=== PATIENT | female | born 1950 | race Caucasian/White ===

== ENCOUNTER → 2016-09-11 | Outpatient (CLI) | payer BC ==
[~2016-09-11] MED LIST: Calcium PO; LETR2TAB PO; LEVO88TA PO; MULT-506 PO
== END | disposition home or self-care (01) ==
LOC: C.PAPS 09:17
PROVIDERS: ATTEND Obstetrics & Gynecology
DX: Z01.419 Encounter for gynecological examination (general) (routine) without abnormal findings (principal)

== ENCOUNTER → 2016-10-30 | Outpatient (CLI) | payer BC | END | disposition home or self-care (01) | LOC: C.LAB1850 09:47 | PROVIDERS: ATTEND Obstetrics & Gynecology | DX: E03.9 Hypothyroidism, unspecified (principal) ==

== ENCOUNTER → 2016-12-07 | Outpatient (CLI) | payer BC ==
--- NOTE | 2016-12-07 13:35 | MAMMOGRAPHY REPORT ---
BILATERAL DIGITAL DIAGNOSTIC MAMMOGRAM TOMOSYNTHESIS WITH CAD: 12/07/2016 CLINICAL HISTORY: History of left breast cancer status post lumpectomy July 2013. The patient has n o current complaints. TECHNIQUE: Breast tomosynthesis in addition to standard 2D mammography was performed. Current study was also evaluated with a Computer Aided Detection (CAD) system. Bilateral CC and MLO 2-D and tomosy nthesis images and spot magnification left CC and ML views were obtained. COMPARISON: Comparison is made to exams dated: 12/07/2016 breast MRI, 11/22/2015 mammogram, 11/22/2015 [facility], 06/01/2015 ultrasound, 06/01/2015 mammogram, and 04/22/2014 mammogram - [facility]. BREAST COMPOSITION: The tissue of both breasts is extremely dense, which lowers the sensitivity of m ammography. FINDINGS: There are stable postsurgical changes in the left upper outer quadrant from prior lumpectom y. Spot magnification views of the lumpectomy bed demonstrate no suspicious masses or clusters of mi crocalcifications. The remainder of both breasts are stable compared to prior exams, without suspici ous masses, calcifications, or areas of architectural distortion noted. Scattered bilateral benign-a ppearing calcifications are stable. IMPRESSION: ACR BI-RADS CATEGORY 2: BENIGN There is no mammographic evidence of malignancy in either breast. A 1 year screening mammogram is rec ommended. The patient has been verbally notified of the results. Approximately 10% of breast cancers are not detected with mammography. A negative mammographic report should not delay biopsy if a clinically suggestive mass is present. Hue Romero M.D. ah/:12/07/2016 11:36:04 Circular Shear Operator: Isela YU)(M), [facility] letter sent: Normal 1/2 BI-RADS Code: ACR BI-RADS Category 2: Benign
== END | disposition home or self-care (01) ==
LOC: C.MAMM 11:12
PROVIDERS: ATTEND Nurse Practitioner Family
DX: Z85.3 Personal history of malignant neoplasm of breast (principal)

== ENCOUNTER → 2016-12-07 | Outpatient (CLI) | payer BC ==
[~2016-12-07] MED LIST changes: +GADAVIST IV PRN
--- NOTE | 2016-12-10 13:48 | MAMMOGRAPHY REPORT ---
BREAST MRI OF BOTH BREASTS : 12/07/2016 CLINICAL HISTORY: History of left breast cancer status post lumpectomy. The patient has no current c omplaints. COMPARISON: Comparison is made to exams dated: 11/22/2015 mammogram, 11/22/2015 breast MRI, 06/01/2015 ma mmogram, 10/21/2014 mammogram, and 12/07/2016 mammogram - [facility]. Technique: The patient was placed prone in a dedicated breast imaging coil. Precontrast axial T1-sita ghted, axial T2-weighted fat saturation, and axial T1-weighted fat saturation images were obtained. After the administration of 5.5 mL of Gadavist IV contrast, sequential T1-weighted fat saturation catia ges were obtained. Subtraction images were obtained of the dynamic contrast enhanced sequences, and 3-D reformations were performed. The [employer] software was used for kinetic analysis. Findings: There is minimal background parenchymal enhancement involving bilateral breasts. There are stable po st surgical changes in the left upper outer quadrant from prior lumpectomy. There are no suspicious enhancing masses or areas of abnormal non-mass enhancement within either breast. There has been no s ignificant interval change compared to the prior breast MRI. There is no evidence of axillary adenopathy. The chest wall structures are negative. Visualized ext ramammary soft tissues are unremarkable. IMPRESSION: ACR BI-RADS CATEGORY 2: BENIGN No MRI evidence of malignancy in either breast. Recommend routine bilateral screening mammograms and screening bilateral breast MRI in one year. Hue Romero M.D. ah/:12/08/2016 15:10:28 Group Sales Coordinator: vulnerability assessment analyst, [facility] letter sent: Normal 1/2 BI-RADS Code: ACR BI-RADS Category 2: Benign
== END | disposition home or self-care (01) ==
LOC: C.MRI 08:30
PROVIDERS: ATTEND Nurse Practitioner Family
DX: C50.412 Malignant neoplasm of upper-outer quadrant of left female breast (principal)

== ENCOUNTER 2022-11-17 20:02 | Inpatient (IN) ==
--- NOTE | 2022-11-17 20:33 | Emergency Department Note ---
History of Present Illness General Chief complaint: Illness Stated complaint: LOSS TRACK OF TIME FOR 10 MINS,BAD COUGH Time Seen by Provider: 11/17/22 20:18 Source: patient, RN notes reviewed and old records reviewed Mode of arrival: ambulatory Limitations: no limitations History of Present Illness This patient comes in after having a coughing spell and then became confused/amnestic. She has been sick with a cough for 3 to 4 days with slight clear mucus. She had a coughing fit this evening and then she said she could not remember about a 15-minute. She was confused initially but now is resolved. She has had neck pain for the last 1 to 2 months and she sedated Lyme testing yesterday which showed IgG G+ and IgM negative she has had previous Lyme. She has no headache. No difficult speaking or swallowing or change in vision no focal numbness or weakness. No joint aches. No abdominal pain slight runny nose she feels fine at present she did a negative COVID test at home Home Medications Medication Instructions Recorded Confirmed Type calcium carbonate 500 mg calcium 500 mg PO QAM 12/03/18 11/17/22 History (1,250 mg) chewable tablet (Calcium 500) letrozole 2.5 mg tablet 2.5 mg PO QAM 12/03/18 11/17/22 History multivitamin 1 tab PO QAM 12/03/18 11/17/22 History levothyroxine 88 mcg tablet 88 mcg PO QAM 11/17/22 11/17/22 History (Synthroid) Allergies Allergy/AdvReac Type Severity Reaction Status Date / Time cephalexin [From Keflex] Allergy Mild Rash Verified 03/19/22 13:36 Cephalosporins Allergy Mild RASH Verified 03/19/22 13:36 doxycycline [From Vibramycin] Allergy Mild Rash Verified 03/19/22 13:36 tetracycline Allergy Mild RASH Verified 03/19/22 13:36 Past Med/Surg History Medical History Colon cancer screening Hx of breast cancer LEFT (SURGERY AND RADIATION) Hyperlipidemia PT DENIES Hypothyroidism Menopause Osteopenia Vitamin D deficiency disease Surgical History H/O lumpectomy LEFT History of cataract surgery RT/LEFT History of colonoscopy History of tooth extraction Family History Father TIA (transient ischemic attack) Denies family history of Ovarian cancer Prostate cancer Myocardial infarction Breast cancer Colorectal cancer Social History Smoking Status: Never smoker Second Hand Exposure: Yes ( A CHILD); Do You Dip or Chew Tobacco: No; Hx Alcohol Use: Yes Alcohol type: beer and wine Alcohol type Comment: with dinner Alcohol Intake Frequency Comment: 1 glass Hx Substance Use: No Preferred Language: Slovenian Communication Ability: Effective Visual Impairment: No Limitations Hearing Ability: Normal Census Taker Required: No Beliefs That Will Affect Care: None marital status: Current Living Situation: Spouse current occupational status: employed current occupation: [employer] Feels Safe at Home: Yes Childhood Exposure to Second-Hand Smoke: Yes caffeine: Yes Dental Care, Regularly: Yes Physical Activity Frequency: 5-6 Times per Week Seatbelt Use: always Sunscreen Use: Yes Assistive Devices: Glasses Review of Systems A total of 10 systems reviewed and were otherwise negative Physical Exam Vital Signs Vital Signs - 24 hr 11/17/22 20:04 11/17/22 20:21 11/17/22 20:41 Temperature 36.8 C Temperature Source Temporal Artery Scan Pulse Rate 69 Pulse Rate [Apical] 71 Pulse Rhythm Regular Pulse Rhythm [Apical] Regular Pulse Strength Normal Respiratory Rate 20 16 Respiratory Effort / Characteristics Non-Labored Spontaneous Non-Labored Respiratory Depth Normal Normal Blood Pressure 186/90 H Blood Pressure [Right Arm] 178/96 H Blood Pressure Mean 122 Blood Pressure Mean [Right Arm] 123 Pulse Oximetry 98 99 97 Oxygen Delivery Method Room Air Room Air Room Air Sepsis Recent Fever Within 48 Hours No Sepsis New/Unexplained Change in Mental Status N/A Sepsis Action Taken by Nursing No Action Required 11/17/22 21:05 11/17/22 22:19 Temperature Temperature Source Pulse Rate 64 Pulse Rate [Apical] 72 Pulse Rhythm Pulse Rhythm [Apical] Pulse Strength Respiratory Rate 16 Respiratory Effort / Characteristics Respiratory Depth Blood Pressure Blood Pressure [Right Arm] 149/95 H Blood Pressure Mean Blood Pressure Mean [Right Arm] 113 Pulse Oximetry 98 Oxygen Delivery Method Sepsis Recent Fever Within 48 Hours Sepsis New/Unexplained Change in Mental Status Sepsis Action Taken by Nursing General: Well developed well nourished ajm-niu-ghqlfxjee middle-age female who appears in no acute distress, breathing comfortably on room air. Normal speech HEENT: Normal cephalic atraumatic. Pupils are equal round and reactive to light. Extraocular movements are intact. Oropharynx is pink with moist mucous membranes. No swelling of the mouth lips or tongue. Neck: Supple with a midline trachea. No meningeal signs or stiffness, no JVD or bruits. No Stridor. Chest: Clear to auscultation bilaterally. No wheezes or rhonchi. No increased work of breathing. Heart: Regular rate and rhythm without murmurs or gallops. Abdomen: Soft nontender, nondistended without rebound guarding or rigidity. Extremities: No cyanosis clubbing or edema. No calf tenderness or assymetry Spine/Back. Non tender to palpation. No CVA tenderness Skin: Good turgor without rashes. Neurologic exam: Cranial nerves two through 12 are intact. Motor and sensation are intact and symmetrical throughout. No tremor Course Administered Medications Menthol (Cough Drop (Sugar Free) Cuauhtemoc 24 Cuauhtemoc/1 Box) 1 cuauhtemoc BUCCAL Q1H PRN PRN Reason: Sore Throat Stop: 12/18/22 01:51 Last Admin: 11/18/22 02:15 Dose: 1 cuauhtemoc Documented By: RMB Discontinued Medications Doxycycline Hyclate 100 mg/ (Dextrose) 110 mls @ 50 mls/hr IV NOW STA Stop: 11/18/22 02:27 Last Admin: 11/18/22 00:37 Dose: 50 mls/hr Documented By: RENÉE Medical Decision Making Differential Diagnosis Central neurologic process, infection, TIA, transient global amnesia, Lyme disease, electrolyte or metabolic abnormality, cardiac disease, rib Medical Records Attestation: I reviewed the patient's medical records. Home Medications Current Medication List: was personally reviewed by me Laboratory Data Attestation: I reviewed the patient's lab results. 11/17/22 20:24 11/17/22 20:24 Lab Results 11/17/22 11/17/22 11/17/22 Range/Units 20:24 20:24 20:50 WBC 7.31 (4.8-10.8) K/ul RBC 4.50 (4.20-5.40) M/uL Hgb 14.1 (12.0-16.0) g/dl Hct 41.2 (37.0-47.0) % MCV 91.6 (80.0-100.0) fL MCH 31.3 (25.0-34.0) pg MCHC 34.2 (32.0-36.0) g/dL RDW Std Deviation 42.7 (36.4-46.3) fL RDW Coeff of Jose J 12.8 (11.5-14.5) % Plt Count 257 (130-400) K/uL MPV 10.7 (9.4-12.4) fL Immature Gran % (Auto) 0.4 % Neut % (Auto) 56.7 % Lymph % (Auto) 28.6 % [place] % (Auto) 11.9 % Eos % (Auto) 1.4 % Baso % (Auto) 1.0 % Neut # (Auto) 4.15 (1.40-6.50) K/uL Lymph # (Auto) 2.09 (1.2-3.4) K/uL [place] # (Auto) 0.87 H (0.11-0.59) K/uL Eos # (Auto) 0.10 (0-0.50) K/uL Baso # (Auto) 0.07 (0-0.2) K/uL Immature Gran # (Auto) 0.03 (0.01-0.20) K/uL Sodium 135 L (136-145) mmol/L Potassium 3.5 (3.5-5.1) mmol/L Chloride 99 (98-107) mmol/L Carbon Dioxide 29 (21-32) mmol/L Anion Gap 7 (3-11) BUN 16 (6-23) mg/dl Creatinine 0.74 (0.6-1.2) mg/dl Est Cr Clr Drug Dosing 64.4 ml/min Est GFR ( Amer) 95.8 ml/min Est GFR (Non-Af Amer) 82.7 ml/min BUN/Creatinine Ratio 21.6 H (10-20) Glucose 106 H (70-99(Fasting)) mg/dl Calcium 10.6 H (8.6-10.3) mg/dl Total Bilirubin 0.3 (0.2-1.0) mg/dl AST 21 (13-39) U/L ALT 16 (7-52) U/L Alkaline Phosphatase 91 (34-104) U/L Troponin I High Sens 149.6 H* (0-14) pg/ml Total Protein 8.1 (6.0-8.3) gm/dl Albumin 4.7 (3.4-5.0) gm/dl Globulin 3.4 (2.5-4.0) gm/dl Albumin/Globulin Ratio 1.4 (0.9-2) Lipase 46 (11-82) U/L Adenovirus (PCR) Not Detected (NotDetected) B. pertussis DNA (PCR) Not Detected (NotDetected) B.parapertussis DNA PCR Not Detected (NotDetected) C. pneumoniae DNA (PCR) Not Detected (NotDetected) Coronavirus OC43 (PCR) Not Detected (NotDetected) Coronavirus HKU1 (PCR) Not Detected (NotDetected) Coronavirus 229E (PCR) Not Detected (NotDetected) SARS-CoV-2 (PCR) Not Detected (NotDetected) Coronavirus NL63 (PCR) Not Detected (NotDetected) Human Metapneumovir PCR Not Detected (NotDetected) Influenza Type A (PCR) Not Detected (NotDetected) Influenza Type B (PCR) Not Detected (NotDetected) M. pneumoniae (PCR) Not Detected (NotDetected) Parainfluenza 1 (PCR) Not Detected (NotDetected) Parainfluenza 2 (PCR) Not Detected (NotDetected) Parainfluenza 3 (PCR) Not Detected (NotDetected) Parainfluenza 4 (PCR) Not Detected (NotDetected) RSV (PCR) Not Detected (NotDetected) Entero/Rhino (PCR) DETECTED A* (NotDetected) 11/17/22 Range/Units 22:32 WBC (4.8-10.8) K/ul RBC (4.20-5.40) M/uL Hgb (12.0-16.0) g/dl Hct (37.0-47.0) % MCV (80.0-100.0) fL MCH (25.0-34.0) pg MCHC (32.0-36.0) g/dL RDW Std Deviation (36.4-46.3) fL RDW Coeff of Jose J (11.5-14.5) % Plt Count (130-400) K/uL MPV (9.4-12.4) fL Immature Gran % (Auto) % Neut % (Auto) % Lymph % (Auto) % [place] % (Auto) % Eos % (Auto) % Baso % (Auto) % Neut # (Auto) (1.40-6.50) K/uL Lymph # (Auto) (1.2-3.4) K/uL [place] # (Auto) (0.11-0.59) K/uL Eos # (Auto) (0-0.50) K/uL Baso # (Auto) (0-0.2) K/uL Immature Gran # (Auto) (0.01-0.20) K/uL Sodium (136-145) mmol/L Potassium (3.5-5.1) mmol/L Chloride (98-107) mmol/L Carbon Dioxide (21-32) mmol/L Anion Gap (3-11) BUN (6-23) mg/dl Creatinine (0.6-1.2) mg/dl Est Cr Clr Drug Dosing ml/min Est GFR ( Amer) ml/min Est GFR (Non-Af Amer) ml/min BUN/Creatinine Ratio (10-20) Glucose (70-99(Fasting)) mg/dl Calcium (8.6-10.3) mg/dl Total Bilirubin (0.2-1.0) mg/dl AST (13-39) U/L ALT (7-52) U/L Alkaline Phosphatase (34-104) U/L Troponin I High Sens 1347.4 H* D (0-14) pg/ml Total Protein (6.0-8.3) gm/dl Albumin (3.4-5.0) gm/dl Globulin (2.5-4.0) gm/dl Albumin/Globulin Ratio (0.9-2) Lipase (11-82) U/L Adenovirus (PCR) (NotDetected) B. pertussis DNA (PCR) (NotDetected) B.parapertussis DNA PCR (NotDetected) C. pneumoniae DNA (PCR) (NotDetected) Coronavirus OC43 (PCR) (NotDetected) Coronavirus HKU1 (PCR) (NotDetected) Coronavirus 229E (PCR) (NotDetected) SARS-CoV-2 (PCR) (NotDetected) Coronavirus NL63 (PCR) (NotDetected) Human Metapneumovir PCR (NotDetected) Influenza Type A (PCR) (NotDetected) Influenza Type B (PCR) (NotDetected) M. pneumoniae (PCR) (NotDetected) Parainfluenza 1 (PCR) (NotDetected) Parainfluenza 2 (PCR) (NotDetected) Parainfluenza 3 (PCR) (NotDetected) Parainfluenza 4 (PCR) (NotDetected) RSV (PCR) (NotDetected) Entero/Rhino (PCR) (NotDetected) Imaging Data Attestation: I personally reviewed and interpreted this imaging study as follows: My Impression: Head CTno hemorrhage or mass effect seen Chest x-ray-no congestive heart failure, pneumonia, pneumothorax Radiologist's Impression: Chest X-Ray 11/17/22 20:41 SINGLE VIEW CHEST CLINICAL HISTORY: Atypical chest pain. FINDINGS: An AP, portable, upright chest radiograph is compared to study dated 08/05/2013. The cardiomediastinal silhouette is unremarkable. The lungs and pleural spaces are clear. No pneumothorax is seen. The structures are osteopeni c. The bony thorax is grossly intact. IMPRESSION: No active disease in the chest. ACT 112: Negative or not required by law. Electronically signed by: Michael Costa M.D. 11/17/2022 10:[address] 11/17/22 20:41 CT SCAN OF THE BRAIN WITHOUT IV CONTRAST CLINICAL HISTORY: Change in mental status. COMPARISON STUDY: No priors. TECHNIQUE: Unenhanced axial CT scan of the brain is performed from the vertex to the skull base. A dose lowering technique was utilized adhering to the principles of ALARA. CT DOSE: 625.80 mGy.cm FINDINGS: Brain parenchyma: The brain parenchyma is normal in appearance. There is no hemorrhage, mass effect, or evidence of acute territorial ischemia by CT criteria. Rebollar-white matter differentiation is preserved. No extra-axial fluid collection is seen. Ventricles, sulci, cisterns: Normal in configuration. Intracranial vasculature: There is atherosclerotic calcification of the cavernous carotid arteries. Calvarium: Unremarkable. Sinuses and mastoids: There is mild mucosal thickening within the ethmoid sinuses. The remaining visualized paranasal sinuses are clear. The mastoid air cells are well pneumatized. Orbits: The bony orbits are grossly intact. There are bilateral ocular lens implants. IMPRESSION: There is no hemorrhage, mass effect, or evidence of acute territorial ischemia by CT criteria. ACT 112: Negative or not required by law. Electronically signed by: Michael Costa M.D. 11/17/2022 10:15 PM ECG Data Attestation: I personally reviewed and interpreted this ECG as follows: Indication: + weakness Rate (beats per minute): 67 Rhythm: + normal sinus ECG Intervals/blocks: + Normal QRS, + Normal QT and + Normal [place] ECG [place]: + Normal ECG ST segments: + Normal ST segments ECG Findings: no PACs or no PVCs Comparison ECG Date: from (08/05/13) Change: no significant change Additional Comments: EKG #2: Normal sinus rhythm at rate of 66. No acute ischemic changes or sig nificant change compared EKG #1 with exception of aVL the T wave looks slightly inverted. MDM Narrative This patient comes in as scribed above she looks great at present has a normal neurologic exam. She had a coughing spell and says she had a hard time breathing initially and then had a memory loss for about 15 minutes she feels fine at present. CAT scan of her head was obtained chest x-ray multiple blood testing was obtained chest x-ray was obtained. She was reassessed frequently. During her entire stay she has remained completely asymptomatic and looks well. CAT scan her head was unremarkable and she has a normal neurologic exam , she is nontoxic and she is non-lethargic. she has nothing to suggest that has meningitis or encephalitis. Chest x-ray was unremarkable and does not show congestive heart failure, pneumonia, pneumothorax. She has no sick electrolyte or metabolic abnormalities. I did review her previous labs as well and her Ig G was positive for Lyme which may be an old disease. She tells me has had it in the past. Of concern however her troponin was elevated at 149. EKG is non- ischemic and she has no symptoms at present. I do think she needs to be admitted and I am concerned about arrhythmia or myocarditis or cardiac event. Her second troponin came back as well at 1347 so she is definitely trended upward and her second EKG shows no definite ischemic changes with exception of maybe a subtle T wave in 1-lead only. She remains asymptomatic. I have consulted and discussed case with Dr. Felipe and the [facility] team they will admit her for these measures. Continuous youth nutritional monitor: Orders placed EMR for just heart monitoring: Upon my evaluation patient was noted to be in normal sinus rhythm with a rate of 65 Impression & Plan Episode of confusion, Elevated troponin, Cough, Enterovirus infection, COVID Discharge Plan Visit Data Chief Complaint: Illness Stated Complaint: LOSS TRACK OF TIME FOR 10 MINS,BAD COUGH ED Provider: Titus Rivero Discharge Problem: Episode of confusion, Elevated troponin, Cough, Enterovirus infection, COVID Discharge Instructions Interventions: ED Discharge Assessment Last Done: 11/18/22 01:27
[2022-11-17 21:20] LABS: Albumin Level 4.7 gm/dl (3.4-5.0); Bilirubin,Total 0.3 mg/dl (0.2-1.0); Calcium 10.6 mg/dl (8.6-10.3); Potassium 3.5 mmol/L (3.5-5.1)
[2022-11-17 21:26] LABS: Albumin Globulin Ratio 1.4 (0.9-2); BUN Creatinine Ratio 21.6 (10-20); Creatinine Clr Calc Pharmacy 64.4 ml/min; Est GFR (African American) 95.8 ml/min; Est GFR (Non-African American) 82.7 ml/min; Globulin 3.4 gm/dl (2.5-4.0); Total Protein 8.1 gm/dl (6.0-8.3)
[2022-11-17 21:43] LABS: Basophils # (auto) 0.07 K/uL (0-0.2); Eosinophils % (auto) 1.4 %; Hematocrit (blood only) 41.2 % (37.0-47.0); Hemoglobin 14.1 g/dl (12.0-16.0); Immature Granulocytes # (auto) 0.03 K/uL (0.01-0.20); Immature Granulocytes % (auto) 0.4 %; Lymphocytes # (auto) 2.09 K/uL (1.2-3.4); Lymphocytes % (auto) 28.6 %; Mean Corpuscular Hemoglobin 31.3 pg (25.0-34.0); Mean Corpuscular Hgb Conc 34.2 g/dL (32.0-36.0); Mean Corpuscular Volume 91.6 fL (80.0-100.0); Mean Platelet Volume 10.7 fL (9.4-12.4); Monocytes # (auto) 0.87 K/uL (0.11-0.59); Monocytes % (auto) 11.9 %; Neutrophils # (auto) 4.15 K/uL (1.40-6.50); Neutrophils % (auto) 56.7 %; Platelet Count 257 K/uL (130-400); RDW Coefficient of Variation 12.8 % (11.5-14.5); RDW Standard Deviation 42.7 fL (36.4-46.3); White Blood Count 7.31 K/ul (4.8-10.8)
[2022-11-17 21:52] LABS: Troponin I High Sensitivity 149.6 pg/ml (0-14)
[2022-11-17 21:54] LABS: Adenovirus PCR Not Detected (NotDetected); Bordetella parapertussis PCR Not Detected (NotDetected); Bordetella pertussis PCR Not Detected (NotDetected); Chlamydia pneumoniae PCR Not Detected (NotDetected); Coronavirus 229E PCR Not Detected (NotDetected); Coronavirus CoV-2 (COVID19)PCR Not Detected (NotDetected); Coronavirus HKU1 PCR Not Detected (NotDetected); Coronavirus NL63 PCR Not Detected (NotDetected); Coronavirus OC43PCR Not Detected (NotDetected); Human Metapneumovirus PCR Not Detected (NotDetected); Influenza A PCR Not Detected (NotDetected); Influenza B PCR Not Detected (NotDetected); Mycoplasma pneumoniae PCR Not Detected (NotDetected); Parainfluenza Virus 1 PCR Not Detected (NotDetected); Parainfluenza Virus 2 PCR Not Detected (NotDetected); Parainfluenza Virus 3 PCR Not Detected (NotDetected); Parainfluenza Virus 4 PCR Not Detected (NotDetected); Respiratory Syncytial VirusPCR Not Detected (NotDetected)
[2022-11-17 22:01] LABS: Rhinovirus/Enterovirus PCR DETECTED (NotDetected)
--- NOTE | 2022-11-17 22:18 | CT Scan Report ---
CT SCAN OF THE BRAIN WITHOUT IV CONTRAST CLINICAL HISTORY: Change in mental status. COMPARISON STUDY: No priors. TECHNIQUE: Unenhanced axial CT scan of the brain is performed from the vertex to the skull base. A d ose lowering technique was utilized adhering to the principles of ALARA. CT DOSE: 625.80 mGy.cm FINDINGS: Brain parenchyma: The brain parenchyma is normal in appearance. There is no hemorrhage, mass effect, or evidence of acute territorial ischemia by CT criteria. Rebollar-white matter differentiation is preser mindy. No extra-axial fluid collection is seen. Ventricles, sulci, cisterns: Normal in configuration. Intracranial vasculature: There is atherosclerotic calcification of the cavernous carotid arteries. Calvarium: Unremarkable. Sinuses and mastoids: There is mild mucosal thickening within the ethmoid sinuses. The remaining visu alized paranasal sinuses are clear. The mastoid air cells are well pneumatized. Orbits: The bony orbits are grossly intact. There are bilateral ocular lens implants. IMPRESSION: There is no hemorrhage, mass effect, or evidence of acute territorial ischemia by CT jasmyne browning. ACT 112: Negative or not required by law. Electronically signed by: Michael Costa M.D. 11/17/2022 10:15 PM
--- NOTE | 2022-11-17 22:53 | XRay Report ---
SINGLE VIEW CHEST CLINICAL HISTORY: Atypical chest pain. FINDINGS: An AP, portable, upright chest radiograph is compared to study dated 08/05/2013. The cardiom ediastinal silhouette is unremarkable. The lungs and pleural spaces are clear. No pneumothorax is see n. The structures are osteopenic. The bony thorax is grossly intact. IMPRESSION: No active disease in the chest. ACT 112: Negative or not required by law. Electronically signed by: Michael Costa M.D. 11/17/2022 10:51 PM
--- NOTE | 2022-11-18 00:12 | History & Physical Report ---
Date of Service November 18, 2022 Assessment & Plan (1) Viral infection: Plan: 71 yo female with PMHx breast cancer and hypothyroidism presents for acute illness. #Entero/rhinovirus -presented with 5 days URI symptoms. No leukocytosis. Afebrile. -CXR unremarkable -supportive treatment #Confusion -had a 20 minute episode of forgetfulness and lightheadedness earlier in the day. Unclear etiology, possible due to acute illness. Cannot exclude stroke or arrhythmia. -CT head unremarkable -will obtain brain MRI to r/o stroke. Will defer CTA head/neck for now. Echo pending. -a1c, lipids pending #Lyme disease -patient endorses tick bite 2 months ago with ongoing neck stiffness since. Was not previously tested for lyme at that time. EKG without significant ST changes. Initial troponin 149, 2hr repeat 1347. LFTs normal. -IgG positive, IgM negative; western blot pending -anaplasmosis/babesia smear pending -given ongoing neck stiffness and elevated troponin, will treat as lyme carditis for now. Cannot exclude neuro lyme with brief episode as above. Started doxyc ycline 100mg bid, would treat for 14-21 days. #Elevated troponin -Denies chest pain. Has been coughing/dry heaving for the past 5 days due to illness. EKG without significant ST changes. Initial troponin 149, 2hr repeat 1347. Cont. to trend. -Unclear etiology of elevations. Low likelihood of ACS. Cannot exclude pericarditis vs lyme carditis vs viral myocarditis vs demand. -echo pending -monitor on tele -cardiology consulted #Breast Cancer -cont. letrozole #Hypothyroidism -cont. levothyroxine DVT ppx: lovenox FEN/GI: regular Code Status: full Dispo: med tele (2) Lyme disease: (3) Infiltrating ductal carcinoma of breast, estrogen receptor positive, stage 1: (4) Hypothyroidism: (5) Elevated troponin: History of Present Illness Chief Complaint: illness Primary Care Provider: Naresh Brice MD 71 yo female with PMHx breast cancer and hypothyroidism presents for acute illness. 5 days ago patient began having chest congestion, sore throat, productive cough, nausea, and fatigue. She has been coughing and dry heaving quite a bit since then. Earlier today she also had a 20 minute episode of feeling lightheaded with some confusion. She was unable to recall what she did earlier in the day during the episode. This "confusion" is new for her. Denies fever, headache, chest pain, sob, abd pain, fatigue, N/V/D, dysuria, extremity weakness/paraesthesia. Of note, 2 months ago she does endorse a tick bite, unsur e how long it was on. Never got tested for lyme nor recalls erythema migrans. However, since then she had some ongoing neck stiffness. Allergies Allergy/AdvReac Type Severity Reaction Status Date / Time cephalexin [From Keflex] Allergy Mild Rash Verified 03/19/22 13:36 Cephalosporins Allergy Mild RASH Verified 03/19/22 13:36 doxycycline [From Vibramycin] Allergy Mild Rash Verified 03/19/22 13:36 tetracycline Allergy Mild RASH Verified 03/19/22 13:36 Home Medications Medication Instructions Recorded Confirmed Type calcium carbonate 500 mg calcium 500 mg PO QAM 12/03/18 11/17/22 History (1,250 mg) chewable tablet (Calcium 500) letrozole 2.5 mg tablet 2.5 mg PO QAM 12/03/18 11/17/22 History multivitamin 1 tab PO QAM 12/03/18 11/17/22 History levothyroxine 88 mcg tablet 88 mcg PO QAM 11/17/22 11/17/22 History (Synthroid) Past Med/Surg History Medical History Colon cancer screening Hx of breast cancer LEFT (SURGERY AND RADIATION) Hyperlipidemia PT DENIES Hypothyroidism Menopause Osteopenia Vitamin D deficiency disease Surgical History H/O lumpectomy LEFT History of cataract surgery RT/LEFT History of colonoscopy History of tooth extraction Family History Father TIA (transient ischemic attack) Denies family history of Ovarian cancer Prostate cancer Myocardial infarction Breast cancer Colorectal cancer Social History Smoking Status: Never smoker Second Hand Exposure: Yes ( A CHILD); Do You Dip or Chew Tobacco: No; Hx Alcohol Use: Yes Alcohol type: wine Alcohol type Comment: with dinner Alcohol Intake Frequency Comment: 1 glass Hx Substance Use: No Preferred Language: Nigerien Communication Ability: Effective Visual Impairment: No Limitations Hearing Ability: Normal Fatback Trimmer Required: No Beliefs That Will Affect Care: None marital status: Current Living Situation: Spouse Current Living Situation Comment: lives at home w current occupational status: employed current occupation: [employer] Feels Safe at Home: Yes Safety Concerns: Feels Safe At This Time Childhood Exposure to Second-Hand Smoke: Yes caffeine: Yes Dental Care, Regularly: Yes Physical Activity Frequency: 5-6 Times per Week Seatbelt Use: always Sunscreen Use: Yes Assistive Devices: None Review of Systems Review of Systems: All systems reviewed & are unremarkable except as noted in HPI & below Physical Exam Physical Exam: Constitutional: in no acute distress, pleasant and normal affect, intact memory. AOx3. Vitals as above. HEENT: No scleral injection or discharge. Moist mucous membranes. Neck: Supple without lymphadenopathy or thyromegaly. Trachea midline. Lungs: Clear to auscultation bilaterally with good effort. No wheezes/rales/rhonchi. Cardiac: Regular rate and rhythm.No murmurs.No extremity edema. 2+ distal per ipheral pulses. Abdomen: Bowel sounds present. Soft, nontender, and nondistended.No guarding. No hepatosplenomegaly. MSK: No cyanosis or clubbing. Extremities motor strength 5/5. Skin: No rashes, warm, dry. Neurologic: no focal deficits, cranial nerves intact, normal sensation bilaterally Results & Data Results & Data Vital Signs (Past 12 Hours) Vital Signs Temp Pulse Pulse Resp BP BP Pulse Ox 11/17/22 22:19 72 16 149/95 H 98 11/17/22 21:05 64 11/17/22 20:41 97 11/17/22 20:21 71 16 178/96 H 99 11/17/22 20:04 36.8 C 69 20 186/90 H 98 O2 Del Method 11/17/22 22:19 11/17/22 21:05 11/17/22 20:41 Room Air 11/17/22 20:21 Room Air 11/17/22 20:04 Room Air Laboratory Results Laboratory Results WBC 7.31 K/ul (4.8-10.8) 11/17/22 20:24 RBC 4.50 M/uL (4.20-5.40) 11/17/22 20:24 Hgb 14.1 g/dl (12.0-16.0) 11/17/22: Hct 41.2 % (37.0-47.0) 11/17/22: MCV 91.6 fL (80.0-100.0) 11/17/22: MCH 31.3 pg (25.0-34.0) 11/17/22: MCHC 34.2 g/dL (32.0-36.0) 11/17/22: RDW Std Deviation 42.7 fL (36.4-46.3) 11/17/22: RDW Coeff of Jose J 12.8 % (11.5-14.5) 11/17/22 Plt Count 257 K/uL (130-400) 11/17/22: MPV 10.7 fL (9.4-12.4) 11/17/22: Immature Gran % (Auto) 0.4 % 11/17/22: Neut % (Auto) 56.7 % 11/17/22: Lymph % (Auto) 28.6 % 11/17/22 20: [place] % (Auto) 11.9 % 11/17/22 20: Eos % (Auto) 1.4 % 11/17/22: Baso % (Auto) 1.0 % 11/17/22: Neut # (Auto) 4.15 K/uL (1.40-6.50) 11/17/22: Lymph # (Auto) 2.09 K/uL (1.2-3.4) 11/17/22: [place] # (Auto) 0.87 K/uL (0.11-0.59) H 11/17/22: Eos # (Auto) 0.10 K/uL (0-0.50) 11/17/22: Baso # (Auto) 0.07 K/uL (0-0.2) 11/17/22: Immature Gran # (Auto) 0.03 K/uL (0.01-0.20) 11/17/22 20: Sodium 135 mmol/L (136-145) L 08/05/23 20:24 Potassium 3.5 mmol/L (3.5-5.1) 11/17/22 20:24 Chloride 99 mmol/L (98-107) 11/17/22 20:24 Carbon Dioxide 29 mmol/L (21-32) 11/17/22 20:24 Anion Gap 7 (3-11) 11/17/22 20:24 BUN 16 mg/dl (6-23) 11/17/22 20:24 Creatinine 0.74 mg/dl (0.6-1.2) 11/17/22 20:24 Est Cr Clr Drug Dosing 64.4 ml/min 11/17/22 20:24 Est GFR ( Amer) 95.8 ml/min 11/17/22 20:24 Est GFR (Non-Af Amer) 82.7 ml/min 11/17/22 20:24 BUN/Creatinine Ratio 21.6 (10-20) H 11/17/22 20:24 Glucose 106 mg/dl (70-99(Fasting)) H 11/17/22 20:24 Calcium 10.6 mg/dl (8.6-10.3) H 11/17/22 20:24 Total Bilirubin 0.3 mg/dl (0.2-1.0) 11/17/22 20:24 AST 21 U/L (13-39) 11/17/22 20:24 ALT 16 U/L (7-52) 11/17/22 20:24 Alkaline Phosphatase 91 U/L (34-104) 11/17/22 20:24 Troponin I High Sens 1347.4 pg/ml (0-14) H* D 11/17/22 22:32 Total Protein 8.1 gm/dl (6.0-8.3) 11/17/22 20:24 Albumin 4.7 gm/dl (3.4-5.0) 11/17/22 20:24 Globulin 3.4 gm/dl (2.5-4.0) 11/17/22 20:24 Albumin/Globulin Ratio 1.4 (0.9-2) 11/17/22 20:24 Lipase 46 U/L (11-82) 11/17/22 20:24 Adenovirus (PCR) Not Detected (NotDetected) 11/17/22 20:50 B. pertussis DNA (PCR) Not Detected (NotDetected) 11/17/22 20:50 B.parapertussis DNA PCR Not Detected (NotDetected) 11/17/22 20:50 C. pneumoniae DNA (PCR) Not Detected (NotDetected) 11/17/22 20:50 Coronavirus OC43 (PCR) Not Detected (NotDetected) 11/17/22 20:50 Coronavirus HKU1 (PCR) Not Detected (NotDetected) 11/17/22 20:50 Coronavirus 229E (PCR) Not Detected (NotDetected) 11/17/22 20:50 SARS-CoV-2 (PCR) Not Detected (NotDetected) 11/17/22 20:50 Coronavirus NL63 (PCR) Not Detected (NotDetected) 11/17/22 20:50 Human Metapneumovir PCR Not Detected (NotDetected) 11/17/22 20:50 Influenza Type A (PCR) Not Detected (NotDetected) 11/17/22 20:50 Influenza Type B (PCR) Not Detected (NotDetected) 11/17/22 20:50 M. pneumoniae (PCR) Not Detected (NotDetected) 11/17/22 20:50 Parainfluenza 1 (PCR) Not Detected (NotDetected) 11/17/22 20:50 Parainfluenza 2 (PCR) Not Detected (NotDetected) 11/17/22 20:50 Parainfluenza 3 (PCR) Not Detected (NotDetected) 11/17/22 20:50 Parainfluenza 4 (PCR) Not Detected (NotDetected) 11/17/22 20:50 RSV (PCR) Not Detected (NotDetected) 11/17/22 20:50 Entero/Rhino (PCR) DETECTED (NotDetected) A* 11/17/22 20:50 Impressions Chest X-Ray 11/17/22 20:41 SINGLE VIEW CHEST CLINICAL HISTORY: Atypical chest pain. FINDINGS: An AP, portable, upright chest radiograph is compared to study dated 08/05/2013. The cardiomediastinal silhouette is unremarkable. The lungs and pleural spaces are clear. No pneumothorax is seen. The structures are osteopenic. The bony thorax is grossly intact. IMPRESSION: No active disease in the chest. ACT 112: Negative or not required by law. Electronically signed by: Michael Costa M.D. 11/17/2022 10:[address] 11/17/22 20:41 CT SCAN OF THE BRAIN WITHOUT IV CONTRAST CLINICAL HISTORY: Change in mental status. COMPARISON STUDY: No priors. TECHNIQUE: Unenhanced axial CT scan of the brain is performed from the vertex to the skull base. A dose lowering technique was utilized adhering to the principles of ALARA. CT DOSE: 625.80 mGy.cm FINDINGS: Brain parenchyma: The brain parenchyma is normal in appearance. There is no hemorrhage, mass effect, or evidence of acute territorial ischemia by CT criteria. Rebollar-white matter differentiation is preserved. No extra-axial fluid collection is seen. Ventricles, sulci, cisterns: Normal in configuration. Intracranial vasculature: There is atherosclerotic calcification of the cav ernous carotid arteries. Calvarium: Unremarkable. Sinuses and mastoids: There is mild mucosal thickening within the ethmoid sinuses. The remaining visualized paranasal sinuses are clear. The mastoid air cells are well pneumatized. Orbits: The bony orbits are grossly intact. There are bilateral ocular lens implants. IMPRESSION: There is no hemorrhage, mass effect, or evidence of acute ter ritorial ischemia by CT criteria. ACT 112: Negative or not required by law. Electronically signed by: Michael Costa M.D. 11/17/2022 10:15 PM Code Status & VTE Plan VTE Prophylaxis Plan VTE Prophylaxis will be ordered: Yes Supervising Physician Co-Signing Physician Notes Attending addendum: I have physically seen this patient, have supervised the medical residents activities, and agree with the H&P unless as otherwise noted. Assessment and Plan: Increasing troponin- The patient will be admitted to telemetry for serial cardiac enzymes, serial EKG's, cardiac rhythm monitoring and a 2-D echocardiogram with Dopplers. Troponin increase from 149.6-1347.4 She has no chest pain or shortness of breath or EKG changes Differential including NSTEMI versus pericarditis versus myocarditis Testing positive for enterovirus/rhinovirus and Lyme IgM Lovenox ordered Consult cardiology Enterovirus/rhinovirus- 5 days of URI symptoms Usual supportive treatment Confusion episode- Had a 20-minute episode of forgetfulness and lightheadedness earlier in the day No other symptoms associated such as palpitations CT head with no acute findings Order MRI brain TIA versus TGA versus other Lyme disease- Patient did have tick bite 2 months previously Lyme IgM negative Lyme IgG positive with Western blot pending Added anaplasmosis and babesiosis smear and antibodies Patient prefers empiric treatment for Lyme, will start doxycycline Resident Activity Tracking Resident Involvement: Resident Care Provided Care Provided: Adult Hospital Medicine
[2022-11-18] MEDS ORDERED: DOXYCYCLINE HYCLATE 100 MG in DEXTROSE 5% 100 ML IV STA (00:16)
[2022-11-18] MEDS ORDERED: POLYETHYLENE (MIRALAX) 17 GM PACK PO PRN (01:46)
[2022-11-18] MEDS ORDERED: ONDANSETRON 4 MG OD TAB PO PRN (01:46)
[2022-11-18] MEDS ORDERED: ACETAMINOPHEN 325 MG TAB PO PRN (01:46)
[2022-11-18] MEDS ORDERED: COUGH DROP (SUGAR FREE) LOZ 24 LOZ/1 BOX BUCCAL PRN (01:52)
[2022-11-18 04:44] LABS: BUN Creatinine Ratio 18.8 (10-20); Calcium 9.4 mg/dl (8.6-10.3); Chol HDL Ratio 2.6 (0-5); Creatinine Clr Calc Pharmacy 73.6 ml/min; Est GFR (African American) 105.5 ml/min; Magnesium 1.8 mg/dl (1.7-2.4); Potassium 3.6 mmol/L (3.5-5.1)
[2022-11-18 04:51] LABS: Basophils # (auto) 0.05 K/uL (0-0.2); Basophils % (auto) 0.7 %; Eosinophils # (auto) 0.09 K/uL (0-0.50); Eosinophils % (auto) 1.3 %; Hemoglobin 13.1 g/dl (12.0-16.0); Immature Granulocytes # (auto) 0.02 K/uL (0.01-0.20); Immature Granulocytes % (auto) 0.3 %; Lymphocytes # (auto) 1.17 K/uL (1.2-3.4); Lymphocytes % (auto) 17.2 %; Mean Corpuscular Hemoglobin 31.4 pg (25.0-34.0); Mean Corpuscular Hgb Conc 34.5 g/dL (32.0-36.0); Mean Corpuscular Volume 91.1 fL (80.0-100.0); Mean Platelet Volume 10.3 fL (9.4-12.4); Monocytes # (auto) 0.35 K/uL (0.11-0.59); Monocytes % (auto) 5.1 %; Neutrophils # (auto) 5.12 K/uL (1.40-6.50); Neutrophils % (auto) 75.4 %; Platelet Count 217 K/uL (130-400); RDW Coefficient of Variation 12.7 % (11.5-14.5); RDW Standard Deviation 42.1 fL (36.4-46.3); Red Blood Count 4.17 M/uL (4.20-5.40)
[2022-11-18] MEDS: LEVOTHYROXINE SODIUM 88 MCG TABLET PO SCH (06:33)
--- NOTE | 2022-11-18 07:15 | Electrocardiogram Report ---
Test Reason : Blood Pressure : / mmHG Vent. Rate : 067 BPM Atrial Rate : 067 BPM P-R Int : 160 ms QRS Dur : 074 ms QT Int : 372 ms P-R-T Axes : 065 -48 061 degrees QTc Int : 393 ms Normal sinus rhythm Left anterior fascicular block Abnormal ECG When compared with ECG of 05-AUG-2013 12:37, Left anterior fascicular block is now Present T wave inversion no longer evident in Inferior leads Confirmed by Jenaro Montes ([id number]) on 11/18/2022 7:15:34 AM Referred By: REFERRED SELF Confirmed By:Vern Montes
--- NOTE | 2022-11-18 07:17 | Electrocardiogram Report ---
Test Reason : Blood Pressure : / mmHG Vent. Rate : 066 BPM Atrial Rate : 066 BPM P-R Int : 170 ms QRS Dur : 074 ms QT Int : 378 ms P-R-T Axes : 064 -39 067 degrees QTc Int : 396 ms Normal sinus rhythm Left axis deviation Abnormal ECG When compared with ECG of 17-NOV-2022 20:17, (unconfirmed) No significant change was found Confirmed by Jenaro Montes ([id number]) on 11/18/2022 7:16:43 AM Referred By: REFERRED SELF Confirmed By:Vern Montes
--- NOTE | 2022-11-18 08:20 | Hospitalist Progress Note ---
Date of Service November 18, 2022 Assessment & Plan (1) Viral infection: Plan: 71 yo female with PMHx breast cancer and hypothyroidism presents for acute illness. #Entero/rhinovirus -presented with 5 days URI symptoms. No leukocytosis. Afebrile. -CXR unremarkable -supportive treatment NSTEMI, elevated troponin, rise of troponin since admission, no clinical symptoms - -echo shows mild reduction of EF to 50 to 55%. Moderate hypokinesis involving the mid and distal anterolateral wall septum is also severely hypokinetic -cardiology consulted given elevation of troponin to 1800 and well motion abnormalities on echocardiogram patient is being offered cardiac catheterization #Confusion brief and resolve -had a 20 minute episode of forgetfulness and lightheadedness earlier in the day. Unclear etiology, possible due to acute illness. Cannot exclude stroke or arrhythmia. -CT head unremarkable - -a1c, lipids pending #Lyme disease -patient endorses tick bite 2 months ago with ongoing neck stiffness since. Was not previously tested for lyme at that time. EKG without significant ST changes. Initial troponin 149, 2hr repeat 1347. LFTs normal. -IgG positive, IgM negative; western blot pending -anaplasmosis/babesia smear pending -given ongoing neck stiffness and elevated troponin, will treat as lyme carditis for now. Cannot exclude neuro lyme with brief episode as above. Started doxycycline 100mg bid, would treat for 14-21 days. #Breast Cancer -cont. letrozole #Hypothyroidism -cont. levothyroxine DVT ppx: lovenox FEN/GI: regular Code Status: full Dispo: med tele (2) Lyme disease: (3) Infiltrating ductal carcinoma of breast, estrogen receptor positive, stage 1: (4) Hypothyroidism: (5) Elevated troponin: Admission and Anticipated Discharge Date Admission Date: November 17, 2022 Subjective Patient was seen in conjunction with Dr. Montes. Patient has absolutely no cardiac symptomatology however with her troponin being 1800 will qualify for NSTEMI. Patient also has a region of wall motion abnormality seen on echocardiogram. She is contemplating cardiac catheterization offered by Dr. Montes Physical Exam Physical Exam: Her exam is regular lungs are clear there is no wheezes Results & Data Results & Data Vital Signs (Past 12 Hours) Vital Signs Temp Pulse Pulse Resp BP Pulse Ox O2 Del Method 11/18/22 07:13 98.1 F 60 16 115/72 98 Room Air 11/18/22 03:16 Room Air 11/18/22 02:51 98.4 F 74 16 97 Room Air 11/18/22 01:46 98.4 F 74 16 145/87 H 97 Room Air 11/18/22 02:35 62 11/18/22 00:56 82 11/18/22 01:27 70 20 95 Room Air 11/18/22 00:28 71 16 124/77 96 Room Air 11/17/22 22:19 72 16 149/95 H 98 11/17/22 21:05 64 11/17/22 20:41 97 Room Air 11/17/22 20:21 71 16 178/96 H 99 Room Air Laboratory Results Reviewed chemistries reviewed troponin PG Care Time/CCT Total # of Minutes Spent Total Time Spent with Patient: Total time spent is greater than 50% in coordination of care (as documented) at patient's floor/unit and/or counseling patient: Coding Level of Care Code 60479 SUB INP/OBS CARE 3/50MIN Diagnoses Viral infection B34.9 Lyme disease A69.20 Infiltrating ductal carcinoma of breast, estrogen receptor positive, stage 1 C50.919; Z17.0 Hypothyroidism E03.9 Elevated troponin R77.8
[2022-11-18] MEDS: LETROZOLE 2.5 MG TAB PO SCH (08:48)
[2022-11-18] MEDS ORDERED: ENOXAPARIN INJ 40 MG/0.4 ML SYR SQ SCH (09:00)
--- NOTE | 2022-11-18 09:10 | Cardiology Consultation ---
Date of Consultation November 18, 2022 Assessment & Plan (1) Elevated troponin: Plan 1. Elevated troponin: Unclear etiology. Her presentation was for coughing and dizziness. She did not present with any cardiac symptoms. However, there has been a continued rise in her cardiac biomarkers suggesting an acute event of some nature. The absence of chest discomfort and significant EKG changes is comforting, but there is well-defined wall motion abnormality on her echocardiogram. I think the likelihood of an acute coronary event is quite small, but for completeness sake she would benefit from coronary angiography. Given her absence of symptoms I think this can safely be deferred until tomorrow morning. Another possible etiology would be myocarditis. However, again no EKG changes or other cardiac symptoms. In the absence of coronary disease is can be treated with supportive care, activity restriction and re-evaluation. History of Present Illness Reason for Consultation: Abnormal troponin Requesting Physician: Jaida Attending Physician: Isaiah Lambert MD History of Present Illness The patient is a 71-year-old woman without a known history of cardiac disease who presented to the hospital after a coughing episode that resulted in some transient dizziness and confusion. Patient has had a nonproductive cough for few days. This tends to be worse when lying down. She did not report associated symptoms such as shortness of breath, fevers or chills. No myalgias or significant rhinorrhea. In fact, she felt like her symptoms were fairly mild. However, due to the severity of the episode she is prompted by her to report to the emergency room. Subsequently, she was noted to have an elevated troponin and was admitted to the hospital for observation. The patient did not report any symptoms of chest discomfort. She does have some mild discomfort while actively coughing, but not at other times. She denies any breathing difficulty. No pleuritic symptoms. While her coughing is worse when lying flat she does not report chest pain while lying flat. She has not had other episodes of dizziness or lightheadedness. She did not report any sense of palpitation. She is an otherwise active individual who likes to stay busy. 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 She hikes, gardens and exercises regularly. She did not endorse any symptoms associated with exercise. She does have a history of breast cancer that was treated with radiation and surgery, but no systemic chemotherapy (other than letrozole). Currently feeling well without symptom. Allergies Allergy/AdvReac Type Severity Reaction Status Date / Time cephalexin [From Keflex] Allergy Mild Rash Verified 03/19/22 13:36 Cephalosporins Allergy Mild RASH Verified 03/19/22 13:36 doxycycline [From Vibramycin] Allergy Mild Rash Verified 03/19/22 13:36 tetracycline Allergy Mild RASH Verified 03/19/22 13:36 Home Medications Medication Instructions Recorded Confirmed Type calcium carbonate 500 mg calcium 500 mg PO QAM 12/03/18 11/17/22 History (1,250 mg) chewable tablet (Calcium 500) letrozole 2.5 mg tablet 2.5 mg PO QAM 12/03/18 11/17/22 History multivitamin 1 tab PO QAM 12/03/18 11/17/22 History levothyroxine 88 mcg tablet 88 mcg PO QAM 11/17/22 11/17/22 History (Synthroid) Patient History Medical History Colon cancer screening Hx of breast cancer LEFT (SURGERY AND RADIATION) Hyperlipidemia PT DENIES Hypothyroidism Menopause Osteopenia Vitamin D deficiency disease Surgical History H/O lumpectomy LEFT History of cataract surgery RT/LEFT History of colonoscopy History of tooth extraction Family History Father TIA (transient ischemic attack) Denies family history of Ovarian cancer Prostate cancer Myocardial infarction Breast cancer Colorectal cancer Social History Smoking Status: Never smoker Second Hand Exposure: Yes ( A CHILD); Do You Dip or Chew Tobacco: No; Hx Alcohol Use: Yes Alcohol type: wine Alcohol type Comment: with dinner Alcohol Intake Frequency Comment: 1 glass Hx Substance Use: No Preferred Language: Turkish Communication Ability: Effective Visual Impairment: No Limitations Hearing Ability: Normal Contact Center Associate Required: No Beliefs That Will Affect Care: None marital status: Current Living Situation: Spouse Current Living Situation Comment: lives at home w current occupational status: employed current occupation: [employer] Feels Safe at Home: Yes Safety Concerns: Feels Safe At This Time Childhood Exposure to Second-Hand Smoke: Yes caffeine: Yes Dental Care, Regularly: Yes Physical Activity Frequency: 5-6 Times per Week Seatbelt Use: always Sunscreen Use: Yes Assistive Devices: None Review of Systems Review of Systems: Per HPI. Tired. Some posterior neck stiffness which has been present for several weeks. Physical Exam Physical Exam: She is alert and oriented x3. Mood affect appear normal. She answered all questions appropriately. HEENT: Sclerae are anicteric. Pupils are equal and reactive to light and accommodation. Extraocular movements were intact. Neuro: Cranial nerves intact Chest: Nontender to palpation Lungs: Lungs are clear to auscultation bilaterally. There are no rales wheezes or rhonchi. She has normal respiratory effort without use of accessory muscles. There is normal pulmonary excursion. Cardiac: The rhythm was regular. S1 and S2 were normal. There are no murmurs on examination. The PMI was not markedly displaced on palpation. Extremities: Patient has bilateral radial pulses that are equal in intensity. There is no evidence cyanosis or clubbing. There was no evidence of significant peripheral edema bilaterally. Skin: There are no rashes noted on examination today. Results & Data Vital Signs (Past 12 Hours) Vital Signs Temp Pulse Pulse Resp BP Pulse Ox O2 Del Method 11/18/22 07:13 36.7 C 60 16 115/72 98 Room Air 11/18/22 03:16 Room Air 11/18/22 02:51 36.9 C 74 16 97 Room Air 11/18/22 01:46 36.9 C 74 16 145/87 H 97 Room Air 11/18/22 02:35 62 11/18/22 00:56 82 11/18/22 01:27 70 20 95 Room Air 11/18/22 00:28 71 16 124/77 96 Room Air 11/17/22 22:19 72 16 149/95 H 98 Laboratory Results Abnormal Lab Results 11/17/22 11/17/22 11/17/22 20:24 20:24 20:50 WBC 7.31 RBC 4.50 Hgb 14.1 Hct 41.2 MCV 91.6 MCH 31.3 MCHC 34.2 RDW Std Deviation 42.7 RDW Coeff of Jose J 12.8 Plt Count 257 MPV 10.7 Immature Gran % (Auto) 0.4 Neut % (Auto) 56.7 Lymph % (Auto) 28.6 [place] % (Auto) 11.9 Eos % (Auto) 1.4 Baso % (Auto) 1.0 Neut # (Auto) 4.15 Lymph # (Auto) 2.09 [place] # (Auto) 0.87 H Eos # (Auto) 0.10 Baso # (Auto) 0.07 Immature Gran # (Auto) 0.03 Sodium 135 L Potassium 3.5 Chloride 99 Carbon Dioxide 29 Anion Gap 7 BUN 16 Creatinine 0.74 Est Cr Clr Drug Dosing 64.4 Est GFR ( Amer) 95.8 Est GFR (Non-Af Amer) 82.7 BUN/Creatinine Ratio 21.6 H Glucose 106 H Calcium 10.6 H Magnesium Total Bilirubin 0.3 AST 21 ALT 16 Alkaline Phosphatase 91 Troponin I High Sens 149.6 H* Total Protein 8.1 Albumin 4.7 Globulin 3.4 Albumin/Globulin Ratio 1.4 Triglycerides Cholesterol LDL Cholesterol, Calc VLDL Cholesterol, Calc HDL Cholesterol Cholesterol/HDL Ratio Lipase 46 Procalcitonin Adenovirus (PCR) Not Detected Anaplasma Smear Babesia Smear B. pertussis DNA (PCR) Not Detected B.parapertussis DNA PCR Not Detected C. pneumoniae DNA (PCR) Not Detected Coronavirus OC43 (PCR) Not Detected Coronavirus HKU1 (PCR) Not Detected Coronavirus 229E (PCR) Not Detected SARS-CoV-2 (PCR) Not Detected Coronavirus NL63 (PCR) Not Detected Human Metapneumovir PCR Not Detected Influenza Type A (PCR) Not Detected Influenza Type B (PCR) Not Detected M. pneumoniae (PCR) Not Detected Parainfluenza 1 (PCR) Not Detected Parainfluenza 2 (PCR) Not Detected Parainfluenza 3 (PCR) Not Detected Parainfluenza 4 (PCR) Not Detected RSV (PCR) Not Detected Entero/Rhino (PCR) DETECTED A* 11/17/22 11/18/22 11/18/22 22:32 04:04 04:04 WBC 6.80 RBC 4.17 L Hgb 13.1 Hct 38.0 MCV 91.1 MCH 31.4 MCHC 34.5 RDW Std Deviation 42.1 RDW Coeff of Jose J 12.7 Plt Count 217 MPV 10.3 Immature Gran % (Auto) 0.3 Neut % (Auto) 75.4 Lymph % (Auto) 17.2 [place] % (Auto) 5.1 Eos % (Auto) 1.3 Baso % (Auto) 0.7 Neut # (Auto) 5.12 Lymph # (Auto) 1.17 L [place] # (Auto) 0.35 Eos # (Auto) 0.09 Baso # (Auto) 0.05 Immature Gran # (Auto) 0.02 Sodium 136 Potassium 3.6 Chloride 102 Carbon Dioxide 27 Anion Gap 7 BUN 12 Creatinine 0.64 Est Cr Clr Drug Dosing 73.6 Est GFR ( Amer) 105.5 Est GFR (Non-Af Amer) 91.0 BUN/Creatinine Ratio 18.8 Glucose 121 H Calcium 9.4 Magnesium 1.8 Total Bilirubin AST ALT Alkaline Phosphatase Troponin I High Sens 1347.4 H* D Total Protein Albumin Globulin Albumin/Globulin Ratio Triglycerides 73 Cholesterol 206 H LDL Cholesterol, Calc 112 VLDL Cholesterol, Calc 15 HDL Cholesterol 79 Cholesterol/HDL Ratio 2.6 Lipase Procalcitonin Adenovirus (PCR) Anaplasma Smear See Comment Babesia Smear See Comment B. pertussis DNA (PCR) B.parapertussis DNA PCR C. pneumoniae DNA (PCR) Coronavirus OC43 (PCR) Coronavirus HKU1 (PCR) Coronavirus 229E (PCR) SARS-CoV-2 (PCR) Coronavirus NL63 (PCR) Human Metapneumovir PCR Influenza Type A (PCR) Influenza Type B (PCR) M. pneumoniae (PCR) Parainfluenza 1 (PCR) Parainfluenza 2 (PCR) Parainfluenza 3 (PCR) Parainfluenza 4 (PCR) RSV (PCR) Entero/Rhino (PCR) 11/18/22 11/18/22 04:04 04:04 WBC RBC Hgb Hct MCV MCH MCHC RDW Std Deviation RDW Coeff of Jose J Plt Count MPV Immature Gran % (Auto) Neut % (Auto) Lymph % (Auto) [place] % (Auto) Eos % (Auto) Baso % (Auto) Neut # (Auto) Lymph # (Auto) [place] # (Auto) Eos # (Auto) Baso # (Auto) Immature Gran # (Auto) Sodium Potassium Chloride Carbon Dioxide Anion Gap BUN Creatinine Est Cr Clr Drug Dosing Est GFR ( Amer) Est GFR (Non-Af Amer) BUN/Creatinine Ratio Glucose Calcium Magnesium Total Bilirubin AST ALT Alkaline Phosphatase Troponin I High Sens 1859.9 H* D Total Protein Albumin Globulin Albumin/Globulin Ratio Triglycerides Cholesterol LDL Cholesterol, Calc VLDL Cholesterol, Calc HDL Cholesterol Cholesterol/HDL Ratio Lipase Procalcitonin < 0.05 Adenovirus (PCR) Anaplasma Smear Babesia Smear B. pertussis DNA (PCR) B.parapertussis DNA PCR C. pneumoniae DNA (PCR) Coronavirus OC43 (PCR) Coronavirus HKU1 (PCR) Coronavirus 229E (PCR) SARS-CoV-2 (PCR) Coronavirus NL63 (PCR) Human Metapneumovir PCR Influenza Type A (PCR) Influenza Type B (PCR) M. pneumoniae (PCR) Parainfluenza 1 (PCR) Parainfluenza 2 (PCR) Parainfluenza 3 (PCR) Parainfluenza 4 (PCR) RSV (PCR) Entero/Rhino (PCR) Diagnostic Findings Head CT and chest x-ray were both normal Overall preserved LV systolic function but a regional wall motion abnormality involving the mid to distal anterolateral wall. No significant valvular heart disease. ECG Additional Comments: Normal sinus rhythm. Normal EKG PG Care Time/CCT Total # of Minutes Spent Total Time Spent with Patient: Total time spent is greater than 50% in coordination of care (as documented) at patient's floor/unit and/or counseling patient: Coding Diagnoses Elevated troponin R77.8
[2022-11-18] MEDS ORDERED: ENOXAPARIN INJ 30 MG/0.3 ML SYR SQ ONE (09:24)
--- NOTE | 2022-11-18 09:33 | CT Scan Report ---
CT head/brain wo con CLINICAL HISTORY: 71 years-old Female with r/o stroke. Acute stroke like symptoms TECHNIQUE: Multiple axial CT images of the head were obtained without contrast. A dose lowering tech nique was utilized adhering to the principles of ALARA. CT DOSE: 547.75 mGy.cm COMPARISON: 11/17/2022 FINDINGS: No acute intracranial hemorrhage, midline shift, intracranial mass, hydrocephalus, territorial ischem ia or abnormal extra-axial collection. The calvarium is intact. The paranasal sinuses, mastoid air cells, and middle ear cavities are clear . IMPRESSION: No acute intracranial abnormality. ACT 112: Negative or not required by law. The above report was generated using voice recognition software. It may contain grammatical, syntax o r spelling errors. Electronically signed by: Kian Quintero M.D. 11/18/2022 9:31 AM
--- NOTE | 2022-11-18 09:34 | XCELERA ---
[id number]
[2022-11-18] MEDS ORDERED: ENOXAPARIN INJ 40 MG/0.4 ML SYR SQ ONE (10:00)
[2022-11-18] MEDS: METOPROLOL TARTRATE 25 MG TAB PO SCH ×2 (10:32→21:05)
[2022-11-18] MEDS: DOXYCYCLINE HYCLATE 100 MG in DEXTROSE 5% 100 ML IV SCH ×2 (10:36→21:05)
--- NOTE | 2022-11-18 19:19 | Billing Data ---
Date of Service November 18, 2022 Coding Level of Care Code 50452 INT INP/OBS CARE
[2022-11-18] MEDS ORDERED: ENOXAPARIN INJ 60 MG/0.6 ML SYR SQ ONE (21:00)
[2022-11-19] MEDS: LEVOTHYROXINE SODIUM 88 MCG TABLET PO SCH (05:39)
[2022-11-19] MEDS ORDERED: fentaNYL citrate PF 100 MCG/2 ML VIAL ONE (07:41)
[2022-11-19] MEDS ORDERED: MIDAZOLAM HCL 1 MG/ML 2ML VIAL ONE (07:41)
[2022-11-19] MEDS ORDERED: niCARdipine HCL INJ 2.5 MG/ML 10 ML AMP ONE (07:41)
[2022-11-19] MEDS ORDERED: HEPARIN (PORCINE) 1000 UNIT/ML 10 ML (CATH LAB USE ONLY) ONE (07:41)
[2022-11-19] MEDS ORDERED: NITROGLYCERIN/D5W 100MCG/ML 20ML SYR ONE (07:42)
[2022-11-19 08:14] LABS: Estimated Average Glucose 117 mg/dl; Hemoglobin A1C 5.7 % (4.5-5.6)
--- NOTE | 2022-11-19 08:23 | Pre Anesthesia Assessment ---
Date of Service November 19, 2022 Pre Sedation Assessment Vital Signs Temp Pulse Pulse Resp BP Pulse Ox O2 Del Method 11/19/22 08:15 68 18 148/79 H 99 Room Air 11/19/22 07:26 36.8 C 61 16 92/50 L 96 Room Air 11/19/22 07:13 56 L 11/19/22 03:06 36.8 C 68 18 130/74 95 Room Air 11/19/22 00:33 63 11/19/22 00:01 Room Air 11/18/22 23:13 37.2 C 61 18 107/69 96 Room Air 11/18/22 19:23 36.9 C 72 18 136/73 97 Room Air 11/18/22 14:00 72 11/18/22 15:22 36.9 C 60 18 125/79 98 Room Air 11/18/22 11:11 37.2 C 60 18 106/67 96 Room Air Cardiovascular + regular rate and + regular rhythm Respiratory + respiratory effort normal Pre-Sedation Airway Assessment Smoking Status: Never smoker Hx Sleep Apnea: No Hx Difficult Intubation: No Short, Thick Neck: No Thyromental Distance: > or= 3.5 Finger Breadths Oral Cavity: + WNL Mallampati Class: III ASA: ASA2 NPO Status Date of Last Intake of Fluids: 11/18/22 Time of Last Intake of Fluids: 21:00 Date of Last Intake of Solid Food: 11/18/22 Time of Last Intake of Solid Foods: 18:00 Procedure Planning Contraindications for Sedation: none Current Medications Reviewed: Yes Notes The planned sedation has been discussed with the patient. Informed Consent was obtained. I have identified the patient, determined the appropriateness of sedation and have assessed the patient immediately prior to the procedure. All medicine(s) and interventions are by my order.
[2022-11-19] MEDS ORDERED: NITROGLYCERIN SL 0.4 MG/TAB TAB SL PRN (09:10)
--- NOTE | 2022-11-19 09:10 | Post Anesthesia Assessment ---
Date of Service November 19, 2022 Post Sedation Assessment Vital Signs Temp Pulse Pulse Resp BP Pulse Ox O2 Del Method 11/19/22 08:15 68 18 148/79 H 99 Room Air 11/19/22 07:26 36.8 C 61 16 92/50 L 96 Room Air 11/19/22 07:13 56 L 11/19/22 03:06 36.8 C 68 18 130/74 95 Room Air 11/19/22 00:33 63 11/19/22 00:01 Room Air 11/18/22 23:13 37.2 C 61 18 107/69 96 Room Air 11/18/22 19:23 36.9 C 72 18 136/73 97 Room Air 11/18/22 14:00 72 11/18/22 15:22 36.9 C 60 18 125/79 98 Room Air 11/18/22 11:11 37.2 C 60 18 106/67 96 Room Air Recovery Score Activity: Moves 4 extremities Respiration: Deep Breath/Cough Circulation: +/-20% PreAnes Value Consciousness: Fully Awake Oxygen Saturation: > 92% On Room Air Discharge Sedation Level of Care: Fast Track Phase II Post Sedation Plan On clinical assessment, the patient appears to have tolerated the sedation without complications. Patient is recovering as anticipated. Patient will continue to be monitored by nursing and may be discharged when sedation discharge criteria are met per below protocol. Upon Completions of procedure up to 15 minutes continue every 5 minute vital sig ns and the P.A.R. score; then discharge to a Phase I or Fast Track to Phase II per the following guidelines: * Discharge Patient to appropriate Phase II area if PAR is 8 or greater or return to pre- procedure baseline. The post - procedure orders will be as directed. * If PAR score is less than 8 or not return to pre-procedure baseline then patient will follow Phase I monitoring till PAR is reached for Phase II. The Phase I may be done in procedure room or may call to secure a Phase I area. * If naloxone or flumazenil are used for reversal, hold in Phase I for continued monitoring from when last reversal dose was given for a minimum of 60 minutes or longer pending the nurse and/or physician discretion of patient condition before discharge to Phase II. Please call the Sedation Physician to re-evaluate and complete post-note for discharge to Phase II area. Do NOT discharge from procedure sedation or Phase 1 until post- sedation evaluation note is complete by procedure /sedation MD Sedation Discharge Instructions to be given to the patient at discharge to home.
--- NOTE | 2022-11-19 09:10 | Cardiac Catheterization ---
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 Cardiac Status Clinical evaluation leading to the procedure CAD Presenation: Non STEMI Diagnostic Physicians Name: Jenaro Montes MD Closure Device Recommendations: Medical Therapy and/or Counseling Cardiac Cath Procedure Full Procedure Date November 19, 2022 Pre-Procedure Diagnosis Pre-Procedure Diagnosis: Non STEMI AUC Score AUC Score: 8 Post-Procedure Diagnosis Post-Procedure Diagnosis: Normal Coronary Arteries and Normal Intracardiac Pressures Procedure(s) Performed Procedure(s) Performed: Coronary Angiography and Left Heart Cath Cobol Developer Jenaro Montes MD Parts Driver(s) none Estimated Blood Loss Estimated Blood Loss: 5cc Medication(s) Medication(s): Fentanyl, Heparin, Lidocaine 1%, Nicardipine, Nitroglycerin and Versed Summary of Findings Procedure performed: Left heart catheterization, selective coronary angiography Staff hydraulics teacher: Jenaro Montes MD Indication: The patient is a 71-year-old woman who presented with elevated cardiac biomarkers and regional wall motion abnormality on her echocardiogram. She was advised to undergo coronary angiography to exclude an acute coronary syndrome or significant coronary disease. Procedure in detail: The patient was informed of the risks benefits and alternatives to the intended procedure, he understood such and wished to proceed. He was taken to the cardiac catheterization suite in a fasting state. Conscious sedation was administered per protocol and the patient was monitored electrocardiographically throughout today's procedure. The right wrist area was prepped and draped in usual sterile fashion. This area was anesthetized using subcutaneous admin istration of a lidocaine solution. The right radial artery was then accessed using Seldinger technique, and a arterial sheath was placed at this site over a guidewire. The sheath was used to facilitate passage of the cardiac catheter for coronary angiography and left heart catheterization. Coronary angiogram was then obtained in multiple orthogonal views prior to removal of the catheter. At the conclusion of the procedure the sheath was removed and hemostasis was achieved at the access site using manual pressure. The patient tolerated procedure well, there were no immediate complications. Equipment used: 5 Portuguese tiger 4 Findings: Coronary artery anatomy Left main: Left main was normal in size and caliber and bifurcated normally into the left anterior descending left circumflex arteries. No disease in this vessel. Left anterior descending: Left anterior descending was a large transapical vessel which supplies a good portion of the inferior wall. It produced 1 very large 1st diagonal branch. There is some minor luminal irregularities but no obstructive lesions in this distribution. Left circumflex: Left circumflex supplying the PDA. It produced a medium-sized 1st OM branch, a diminutive 2nd and medium-sized 3rd OM branch prior to the PDA. No obstructive lesions in this vessel. Right coronary: Right coronary was a nondominant vessel. No obstructive disease. Impression: Left dominant coronary system No obstructive coronary disease No evidence of aortic stenosis Normal left ventricular filling pressures Hemodynamics Rest Ao:: 84/46 mm of mercury Final Ao: 90/50 mm of mercury LV: 81/1 mm of mercury Left ventricular end-diastolic pressure 7 mm of mercury Recommendations Recommendations: Medical Therapy and/or Counseling Specimens Specimens: None Radiation Exposure (mGy) 174 Contrast (mls) 30 Procedural Complication(s) None Disposition PCU I attest to the content of the Intraoperative Record and any orders documented therein. Any exceptions are noted below. [facility] Card Cath Procedure Codes Cardiac Catheterization Procedure 1: Cardiovascular Cath Procedures: 92141 Coronaries and LHC (+/-LV) Moderate Sedation Procedure 1: Sedation/Anesthesia: 85554 Mod Sedation by the same physician;Init15 Min Child Age 5 & Up Procedure 2: Sedation/Anesthesia: 72729 Mod Sedation by the same physician; Ea [id number] Minutes PG Care Time/CCT Total # of Minutes Spent Total Time Spent with Patient: Total time spent is greater than 50% in coordination of care (as documented) at patient's floor/unit and/or counseling patient:
[2022-11-19] MEDS: METOPROLOL TARTRATE 25 MG TAB PO SCH (10:45)
[2022-11-19] MEDS: DOXYCYCLINE HYCLATE 100 MG in DEXTROSE 5% 100 ML IV SCH (13:43)
[2022-11-19] MEDS ORDERED: SODIUM CHLORIDE 0.9% 500 ML IV SCH (15:13)
[2022-11-19] MEDS: LETROZOLE 2.5 MG TAB PO SCH (15:41)
[2022-11-19] MEDS ORDERED: IOVERSOL 350 MG 125mL Prefilled Syringe IV ONE (16:09)
--- NOTE | 2022-11-19 17:14 | CT Scan Report ---
CHEST CTA for PULMONARY ARTERIES CT DOSE: 383.23 mGy.cm HISTORY: Cough. Evaluate for pulmonary embolus. TECHNIQUE: Multiaxial CT images of the chest were performed following the intravenous administration of contrast to evaluate the pulmonary arteries. 3D/Maximal intensity projection images were also obta ined. Sagittal and coronal reformations were also reviewed. A dose lowering technique was utilized a dhering to the principles of ALARA. COMPARISON STUDY: Chest CT 06/15/2022. FINDINGS: No acute fractures within the chest. No suspicious lytic or blastic osseous lesions. Subtle sclerosis within the left anterior third and fourth ribs remains unchanged. This favors old, healed fractures. Scarlike density within the left upper breast. Limited views of the upper abdomen demonstr ate normal liver, spleen, and adrenal glands. Small amount of contrast seen within the renal collecti ng systems. Normal esophagus. The heart is normal in size. No pleural or pericardial effusions. No me diastinal or hilar lymphadenopathy. Mild biapical pleural-parenchymal scarlike densities remain uncha nged. No pneumothorax. The central airways are patent. No focal lung consolidations to suggest a pneu monia. No evidence for pulmonary edema. Mild dependent changes seen within the lungs posteriorly. Sta ble subpleural nodules within the right lower lobe on images 151 and 133 with the largest measuring 8 mm. No new pulmonary nodules identified normal caliber thoracic aorta with no evidence for a dissect ion. No filling defects within the pulmonary arteries to suggest a pulmonary embolus. IMPRESSION: 1. No evidence for a pulmonary embolus. 2. Additional stable findings as described above. ACT 112: Negative or not required by law. Electronically signed by: Mike Johnson M.D. 11/19/2022 5:12 PM
--- NOTE | 2022-11-19 18:29 | Discharge Summary ---
Date of Service November 19, 2022 Principal Diagnosis enteroviral rhinovirus infection transient encephalopathy from viral infection resolved NSTEMI with negative coronaries by catheterization suspect myocarditis reason for troponin spill Lyme IgG positive without concomitant symptoms no further testing until confirmatory results return Discharge Exam awake alert appropriate right wrist site looks clean dry and intact Discharge Data Allergies Allergy/AdvReac Type Severity Reaction Status Date / Time cephalexin [From Keflex] Allergy Mild Rash Verified 03/19/22 13:36 Cephalosporins Allergy Mild RASH Verified 03/19/22 13:36 doxycycline [From Vibramycin] Allergy Mild Rash Verified 03/19/22 13:36 tetracycline Allergy Mild RASH Verified 03/19/22 13:36 Consultations 11/17/22 22:04 ED Decision to Admit Stat 11/18/22 02:32 Consult Cardiology Routine Procedures Performed Operation Date: 11/19/22 08:00 Actual Procedures p Cineradiography w/Routine Exam - Jenaro Montes MD p Cath, Left with Cors and Vent - Jenaro Montes MD Ordered Studies 11/17/22 20:41 CT head/brain wo con Stat 11/18/22 01:55 CT Brain [CT head/brain wo con] Routine 11/19/22 06:41 CL Cath Imgs for PACS use only Urgent 11/19/22 14:00 CT angio chest PE protocol Routine Hospital Course (1) Viral infection: #Entero/rhinovirus -presented with 5 days URI symptoms. No leukocytosis. Afebrile. -CXR unremarkable -supportive treatment because of her prodromal symptoms felt to be responsible for metabolic encephalopathy which is since resolved (2) Elevated troponin: troponin elevation 1800 without acute coronary syndrome changes. Echocardiogram shows preserved EF with areas of regional wall motion abnormalities noted. Patient underwent left heart catheterization without any concern for occlusive coronary disease. Cardiology feels should be discharged on metoprolol succinate 25 for myocarditis with with no intentional exercise and close cardiology follow-up. Cardiology specifically requested no aspirin. Prior to going home patient is CT angiography of the chest to rule out pulmonary embolism this was also unremarkable lipid panel shows total cholesterol 217 LDL 127 HDL of 79, hemoglobin A1c of 5.7 (3) Lyme disease: patient with IgG positive confirmatory test or send out symptom complex is not consistent with Lyme disease or Lyme carditis subsequently we will not send home on doxycycline as patient previous had a rash to this if confirmatory testing is positive second line treatment for Lyme disease should be considered (4) Infiltrating ductal carcinoma of breast, estrogen receptor positive, stage 1: continue letrozole (5) Hypothyroidism: continue Synthroid Total Time Total Time Spent Total Time Spent (In Minutes): it required greater than 30 minutes to prepare this patient for discharge Discharge Plan Discharge Items Patient Disposition: Home - Self-Care Reason For Visit: ILLNESS Discharge Diagnosis: rhinovirus infection nstemi, elevation of heart muscle enzyme test heart cath without explanation of enzymes, no occlusion of blood vessels Activity: Per Instructions section Activity Comment: no intentional exercise Non-emergency contact: Primary Care Provider Call non-emergency contact if: your symptoms worsen Follow-up/Referrals: Naresh rBice MD [Primary Care Provider] - Jenaro Montes MD [Physician] - Diet: Regular Addtl Attending Provider Instructions: rhino virus is a common virus that can range from mild to severe symptoms, usually affecting the upper and lower respiratory tract. using typical strategies to help relieve symptoms It is good news that your cardiac catheterization test was normal, because of the slight changes seen on the Echo report, it would be recommended that you follow up with a cardiology team in the next few weeks to months, take a daily metoprolol dose and no intentional exercise until you are released by Dr Montes For your hospital stay you also had an angiogram of your lungs to rule out pulmonary embolisms the test did not show any abnormalities It be important to keep yourself well-hydrated over the next 24 to 48 hours Pending Studies at Discharge: No Stand-Alone Forms: [facility], Smoking Cessation Medications and DC Order Prescriptions: New metoprolol succinate 25 mg tablet extended release 24 hr 25 mg PO DAILY Qty: 30 3RF Continued letrozole 2.5 mg tablet 2.5 mg PO QAM Patient Comments: QAM calcium carbonate [Calcium 500] 500 mg calcium (1,250 mg) tablet,chewable 500 mg PO QAM Patient Comments: QAM multivitamin tablet 1 tab PO QAM Patient Comments: QAM levothyroxine [Synthroid] 88 mcg tablet 88 mcg PO QAM Patient Comments: QAM Discharge Orders: Discharge Order (Routine); Ordered 11/19/22 Ordered By: Isaiah Lambert Admission Data Admit Date/Time: 11/17/22 23:53 Attending Provider: Isaiah Lambertit Provider: Damien Sena Primary Care Provider: Naresh Brice V. Other Providers: Marty Thomson ; Jenaro Montes Coding Level of Care Code 63384 INP/OBS DISCH >30 MIN Diagnoses Viral infection B34.9 Elevated troponin R77.8 Lyme disease A69.20 Infiltrating ductal carcinoma of breast, estrogen receptor positive, stage 1 C50.919; Z17.0 Hypothyroidism E03.9
--- NOTE | 2022-11-19 18:46 | Cardiology Progress Note ---
Date of Service November 19, 2022 Assessment & Plan (1) Elevated troponin: Plan 1. Elevated troponin: Not related to an acute coronary syndrome or coronary disease. Likely myocarditis. Possibly viral in nature. Less likely stress induced. At this point I think continuation of beta-blockade and activity restriction with re-evaluation in few weeks is advisable. She should refrain from vigorous use of the right hand and wrist for 7 days. No lifting greater than 5 lb. Admission and Anticipated Discharge Date Admission Date: November 17, 2022 Subjective This afternoon the patient claimed he feeling well. No discomfort at the right radial access site used for catheterization earlier today. No symptoms of chest discomfort. No dyspnea. Minimal coughing. Anxious for discharge. Review of Systems Review of Systems: Per HPI Physical Exam Physical Exam: She is alert and oriented x3. Mood affect appear normal. She answered all questions appropriately. HEENT: Sclerae are anicteric. Pupils are equal and reactive to light and accommodation. Extraocular movements were intact. Neuro: Cranial nerves intact Chest: Nontender to palpation Lungs: Lungs are clear to auscultation bilaterally. There are no rales wheezes or rhonchi. She has normal respiratory effort without use of accessory muscles. There is normal pulmonary excursion. Cardiac: The rhythm was regular. S1 and S2 were normal. There are no murmurs on examination. The PMI was not markedly displaced on palpation. Extremities: Patient has bilateral radial pulses that are equal in intensity. There is no evidence cyanosis or clubbing. There was no evidence of significant peripheral edema bilaterally. Good perfusion of the right hand Skin: There are no rashes noted on examination today. ENMT: Mallampati Class: III Respiratory: normal respiratory effort Cardiovascular: Rate/Rhythm: regular rate and regular rhythm Results & Data Vital Signs (Past 12 Hours) Vital Signs Temp Pulse Pulse Resp BP BP Pulse Ox 11/19/22 17:25 36.4 C L 67 18 113/68 135/72 97 11/19/22 17:00 36.4 C L 67 18 113/68 11/19/22 16:34 36.4 C L 65 16 135/72 97 11/19/22 15:40 36.6 C 65 18 140/76 96 11/19/22 15:10 36.6 C 67 16 139/76 96 11/19/22 16:14 67 11/19/22 13:15 62 18 102/59 L 97 08/07/23 12:15 63 18 126/69 97 11/19/22 11:45 59 L 18 114/66 97 11/19/22 11:15 59 L 18 108/68 97 11/19/22 11:00 56 L 18 105/57 L 97 11/19/22 10:45 57 L 18 101/51 L 96 11/19/22 10:30 54 L 18 106/66 97 11/19/22 10:15 55 L 18 104/62 98 11/19/22 10:00 57 L 18 102/59 L 97 11/19/22 09:45 57 L 18 101/59 L 96 11/19/22 09:30 59 L 18 112/68 97 11/19/22 09:15 58 L 18 115/67 96 11/19/22 09:05 66 18 105/67 95 11/19/22 08:15 68 18 148/79 H 99 11/19/22 07:26 36.8 C 61 16 92/50 L 96 11/19/22 07:13 56 L O2 Del Method 11/19/22 17:25 11/19/22 17:00 11/19/22 16:34 Room Air 11/19/22 15:40 Room Air 11/19/22 15:10 Room Air 11/19/22 16:14 11/19/22 13:15 Room Air 11/19/22 12:15 Room Air 11/19/22 11:45 Room Air 11/19/22 11:15 Room Air 11/19/22 11:00 Room Air 11/19/22 10:45 Room Air 11/19/22 10:30 Room Air 11/19/22 10:15 Room Air 11/19/22 10:00 Room Air 11/19/22 09:45 Room Air 11/19/22 09:30 Room Air 11/19/22 09:15 Room Air 11/19/22 09:05 Room Air 11/19/22 08:15 Room Air 11/19/22 07:26 Room Air 11/19/22 07:13 Laboratory Results Abnormal Lab Results 11/18/22 11/18/22 04:04 22:37 Estimat Average Glucose 117 Hemoglobin A1c 5.7 H Troponin I High Sens 484.7 H* Diagnostic Findings Coronary angiography left heart catheterization were performed today. This revealed normal coronary arteries with left dominant coronary system. No evidence of obstructive coronary disease or acute coronary syndrome. Normal left ventricular filling pressure. PG Care Time/CCT Total # of Minutes Spent Total Time Spent with Patient: Total time spent is greater than 50% in coordination of care (as documented) at patient's floor/unit and/or counseling patient: Coding Level of Care Code 29968 SUB INP/OBS CARE 2/35MIN Diagnoses Elevated troponin R77.8
--- NOTE | 2022-11-19 19:42 | Electrocardiogram Report ---
Test Reason : Blood Pressure : / mmHG Vent. Rate : 066 BPM Atrial Rate : 066 BPM P-R Int : 176 ms QRS Dur : 070 ms QT Int : 422 ms P-R-T Axes : 072 -49 073 degrees QTc Int : 442 ms Poor data quality, interpretation may be adversely affected Normal sinus rhythm Left anterior fascicular block Abnormal ECG When compared with ECG of 17-NOV-2022 22:17, No significant change was found Confirmed by Jenaro Montes ([id number]) on 11/19/2022 7:42:06 PM Referred By: REFERRED SELF Confirmed By:Vern Montes
[2022-11-21 03:42] LABS: Babesia microti DNA Not Detected (Not Detected)
== END 2022-11-19 18:43 | disposition home or self-care (01) | DRG 865 ==
LOC: ED 20:02 → 2W 23:53 → SUATTDRO 23:53 → 2W 11-18 01:27 → 2E 11-19 15:08